=== PATIENT | male | born 1985 | race Caucasian/White ===

== ENCOUNTER → 2019-11-25 10:41 | Outpatient (BNVA) | payer MEDICAID, SELFPAY | PROVIDERS: PCP Family Medicine; Visit Provider Psychiatry & Neurology Psychiatry | DX: F33.9 Major depressive disorder, recurrent, unspecified (principal); F34.9 Persistent mood [affective] disorder, unspecified; E61.7 Deficiency of multiple nutrient elements; F41.9 Anxiety disorder, unspecified | CPT/HCPCS: 99205 ==

== ENCOUNTER → 2020-05-09 07:41 | Outpatient (BNVA) | payer MEDICAID, SELFPAY | PROVIDERS: PCP Family Medicine; Visit Provider Nurse Practitioner Psychiatric/Mental Health | DX: F33.9 Major depressive disorder, recurrent, unspecified (principal); F34.9 Persistent mood [affective] disorder, unspecified; F41.9 Anxiety disorder, unspecified; G89.29 Other chronic pain | CPT/HCPCS: 99213 ==

== ENCOUNTER → 2020-06-01 08:04 | Outpatient (BNVA) | payer MEDICAID, SELFPAY | PROVIDERS: PCP Family Medicine; Visit Provider Counselor Professional | DX: F33.9 Major depressive disorder, recurrent, unspecified (principal); F34.9 Persistent mood [affective] disorder, unspecified; F41.9 Anxiety disorder, unspecified; G89.29 Other chronic pain | CPT/HCPCS: 90834 ==

== ENCOUNTER → 2020-06-22 08:32 | Outpatient (BNVA) | payer MEDICAID, SELFPAY | PROVIDERS: PCP Family Medicine; Visit Provider Counselor Professional | DX: F33.9 Major depressive disorder, recurrent, unspecified (principal); F34.9 Persistent mood [affective] disorder, unspecified; F41.9 Anxiety disorder, unspecified; G89.29 Other chronic pain | CPT/HCPCS: 90834 ==

== ENCOUNTER → 2020-07-06 08:06 | Outpatient (BNVA) | payer MEDICAID, SELFPAY | PROVIDERS: PCP Family Medicine; Visit Provider Counselor Professional | DX: F33.9 Major depressive disorder, recurrent, unspecified (principal); F34.9 Persistent mood [affective] disorder, unspecified; F41.9 Anxiety disorder, unspecified; G89.29 Other chronic pain | CPT/HCPCS: 90834 ==

== ENCOUNTER → 2020-07-13 08:40 | Outpatient (BNVA) | payer MEDICAID, SELFPAY | PROVIDERS: PCP Family Medicine; Visit Provider Nurse Practitioner Psychiatric/Mental Health | DX: F33.9 Major depressive disorder, recurrent, unspecified (principal); F34.9 Persistent mood [affective] disorder, unspecified; F41.9 Anxiety disorder, unspecified; G89.29 Other chronic pain; F12.20 Cannabis dependence, uncomplicated | CPT/HCPCS: 99214 ==

== ENCOUNTER → 2020-08-31 08:00 | Outpatient (BNVA) | payer MEDICAID, SELFPAY | PROVIDERS: PCP Family Medicine; Visit Provider Nurse Practitioner Psychiatric/Mental Health | DX: F33.9 Major depressive disorder, recurrent, unspecified (principal); F34.9 Persistent mood [affective] disorder, unspecified; F41.9 Anxiety disorder, unspecified; G89.29 Other chronic pain; F12.20 Cannabis dependence, uncomplicated | CPT/HCPCS: 99213 ==

== ENCOUNTER → 2020-11-23 07:54 | Outpatient (BNVA) | payer MEDICAID, SELFPAY | PROVIDERS: PCP Family Medicine; Visit Provider Nurse Practitioner Psychiatric/Mental Health | DX: F33.9 Major depressive disorder, recurrent, unspecified (principal); F34.9 Persistent mood [affective] disorder, unspecified; F41.9 Anxiety disorder, unspecified; G89.29 Other chronic pain | CPT/HCPCS: 99213 ==

== ENCOUNTER → 2020-11-29 07:57 | Outpatient (BNVA) | payer MEDICAID, SELFPAY | PROVIDERS: PCP Family Medicine; Visit Provider Counselor Professional | DX: F33.9 Major depressive disorder, recurrent, unspecified (principal); F34.9 Persistent mood [affective] disorder, unspecified; F41.9 Anxiety disorder, unspecified; G89.29 Other chronic pain | CPT/HCPCS: 90834 ==

== ENCOUNTER 2021-01-31 10:22 | Emergency (ER) | payer MEDICAID, SELFPAY ==
[2021-01-31] VITALS (8 sets, daily range): BP systolic 104–139; BP diastolic 61–92; PULSE 76–105; RESP 16–18; TEMP 36.6; O2SAT 95–100; BMI 25.5
--- NOTE | 2021-01-31 11:10 | ED_ITS ---
HPI - Nausea/Vomiting/Diarrhea General: Chief complaint: General Medical Stated complaint: n/v, unable to eat, diabetic, weak, Time Seen by Provider: 01/31/21 10:27 Source: patient Mode of arrival: ambulatory Limitations: no limitations History of Present Illness: HPI Narrative: Patient is a nice 35-year-old male who presents to ED today along with his for complaints of nausea, vomiting, and abdominal pain. Patient tells me symptoms have been present over the past 6 days. He states he is a type I diabetic and concerned for possible DKA. He states his sugars at home have been running in the 300s-400s. He states normally they run in the 100s?200s. He has not been taking his insulin like he is supposed to because he cannot hold anything down and was afraid to take insulin without eating anything. He has not been able to hold down any of his other medications. Abdominal pain is diffuse. He states he was seen at [facility] ED on Friday and tells me they did a UDS and as soon as they saw it was positive for marijuana they discharged me home with hyperemesis cannabis . Patient tells me he does normally smoke marijuana in the evenings to help with sleep. He st ates he has not smoked over the past week. Of note he did recently complete course of steroids for COVID like symptoms. MD elicited complaint: nausea, vomiting and abdominal pain Onset (ago): day(s) Associated nausea: Yes Associated abdominal pain: Yes Location of pain: Diffuse Radiation: diffuse Pain consistency: constant Severity: severe Quality: cramping and aching Exacerbating factors: eating Relieving factors: none Context: marijuana use and other (Type I diabetic ) Associated symtoms: Reports nausea; Denies change in vision, chest pain, dysuria, fatigue, headache(s), malaise, palpitations or syncope Review of Systems Const: Denies: fever(s), chills, body aches, fatigue or malaise Eyes: Denies: change in vision or blurry vision ENMT: Denies: odynophagia, nasal discharge or nasal congestion Card: Denies: chest pain, palpitations, irregular heart rhythm, lightheadedness, syncope or pre-syncope Resp: Denies: dyspnea GI: Reports: abdominal pain, nausea and vomiting; Denies: hematemesis, coffee ground emesis, diarrhea, constipation, change in bowel habits or hematochezia : Denies: flank pain, dysuria or hematuria Musc: Denies: neck pain, back pain, extremity pain or joint pain Skin/Breast: Denies: rash Neuro: Denies: headache(s), numbness in extremities, weakness in extremities or sensory changes PFS ED PFSH: Medical History (Updated 01/31/21 @ 16:49 by ISAMAR Arriola) Anxiety disorder Chronic pain Social History (Updated 11/25/19 @ 10:50 by Amanda Montiel LPN) Smoking and tobacco status: never smoked Current gender identity: Male Physical Exam Const: COMMON NORMALS: average body habitus, patient oriented x3, no limitations, healthy appearing, alert and well nourished GENERAL APPEARANCE: cooperative and in distress (looks like he doesn't feel well) ORIENTATION/CONSCIOUSNESS: Yes awake, Yes oriented to person, Yes oriented to place and Yes oriented to time HENMT: COMMON NORMALS: normocephalic and atraumatic HEAD & SCALP: normocephalic and atraumatic Resp: COMMON NORMALS: normal respiratory effort and clear to auscultation bilaterally AUSCULTATION: clear to auscultation bilaterally Cardio: COMMON NORMALS: regular rhythm RATE: tachycardic (mild) RHYTHM: regular rhythm GI: COMMON NORMALS: Normal to inspection, nondistended, normoactive bowel sounds present, Soft to palpation, No hepatosplenomegaly present and no masses PALPATION: Yes Soft to palpation, Yes Tenderness to palpation present (GI) (diffusely), Yes Guarding due to palpation present (GI), Yes Rigid due to palpation and Yes No hepatosplenomegaly present : COMMON NORMALS: Yes no CVA tenderness BLADDER/KIDNEY EXAM: Yes no CVA tenderness Back/Pelvis: COMMON NORMALS: no CVA tenderness Extremity: COMMON NORMALS: normal to inspection Neuro: COMMON NORMALS: patient oriented x3 SENSORIUM/ORIENTATION: Yes alert, Yes oriented to person, Yes oriented to place and Yes oriented to time Skin: COMMON NORMALS: no rashes or lesions noted GENERAL SKIN EXAM: no rashes or lesions noted TRAUMA: no lacerations or abrasions Course ED course: Patient with blood sugar of 370s. His pH is normal but his bicarb is low and anion gap is over 33. Serum ketones positive. Spoke to Dr. Simpson who recommends second liter of fluids, IV insulin-no drip at this time, and reglan for possible diabetic gastroparesis. I think steroids could have precipitated this but also there is a possibility of hyperemesis cannabis syndrome based on his habitual use. Vital Signs: Vital signs: Vital Signs Temperature 97.8 F 01/31/21 10:56 Pulse Rate 102 H 01/31/21 17:25 Respiratory Rate 18 01/31/21 17:25 Blood Pressure 138/61 01/31/21 17:25 Pulse Oximetry 99 01/31/21 17:25 MDM - Nausea/Vomiting/Diarrhea MDM Narrative: Medical decision making narrative: Patient is a nice 35-year-old here for complaints of diffuse abdominal pain and uncontrollable nausea/vomiting. Symptoms have been present over the past 6 days. He is a type I diabetic. States he had not been taking his insulin as he has not been able to eat as his insulin as prescribed to take with meals. Patient has had recent steroid use secondary to COVID-like symptoms. He is a habitual marijuana user. Blood glucose in the 370s upon arrival. He did have positive serum ketones and a gap of over 33. Bicarb also low at 19. Patient is not wanting to stay in the hospital at this time. I spoke to Dr. Simpson and decision was made to give p atient 2 L of fluids, IV insulin, and IV antiemetics. Upon re-examination patient feels substantially improved. He is eating and drinking in the room. He states abdominal pain has subsided. He has not had any further episodes of emesis while here. Glucose down to 250s. His gap has closed slightly at 24.9 upon repeat BMP. Again I did recommend he stay in hospital as he certainly has early/compensated DKA at this time but again he feels like he can go home and doesn't want to stay. Will get patient set up with new PCP as he doesn't feel confident in his current PCP with the management of his diabetes. Will DC with Yesenia. DDx hyperemesis cannibus syndrome, gastroparesis, steroid induced hyperglycemia, DKA. Strict return to ED precautions given. Lab Data: Labs: Lab Results 01/31/21 01/31/21 01/31/21 Range/Units 11:16 11:20 11:21 WBC 8.8 (4.0-10.0) 10^3/ uL RBC 5.44 H (4.1-5.3) 10^6/u L Hgb 15.4 (11.7-16.6) g/dL Hct 46.5 (42.0-52.0) % MCV 85.5 (80-94) fl MCH 28.3 (28.0-34.0) pg MCHC 33.1 (30.0-36.0) g/dL RDW 12.6 (12.1-15.1) % Plt Count 262 (130-400) 10^3/c mm MPV 12.7 H (7.4-10.4) fL Neut % (Auto) 80.5 % Lymph % (Auto) 11.7 % [place] % (Auto) 7.3 % Eos % (Auto) 0.1 % Baso % (Auto) 0.2 % Neut # (Auto) 7.08 (1.8-7.7) 10^3/u L Lymph # (Auto) 1.0 (0.8-4.8) 10^3/u L [place] # (Auto) 0.6 (0.2-0.9) 10^3/u L Eos # (Auto) 0.0 (0.0-0.8) 10^3/u L Baso # (Auto) 0.0 (0.0-0.1) 10^3/u L Nucleated RBC % (a uto) 0 % Nucleated RBCs # 0.0 /100WBC Specimen Type Arterial Sample Site Radial, right ABG pH 7.41 (7.35-7.45) ABG pCO2 30.3 L (35-45) mmHg ABG pO2 89.5 (80.0-100.0) mmH g ABG HCO3 19.1 L (22-26) mmol/L ABG O2 Saturation 97.3 ABG Base Excess -4.3 L (-2.0-2.0) mmol/ L [place] Test Pos A-a O2 Gradient 2.8 L (5-10) mmHg Hematocrit 46.7 (42-52) % Hgb O2 Saturation 96.4 (95-100) % Carboxyhemoglobin 0.6 (0.4-20.1) %THgb Methemoglobin 0.3 L (0.4-1.5) % Total Hemoglobin 15.2 (14-18) g/dL Sodium 139.0 (131-143) mmol/L Potassium 3.7 (3.5-5.0) mmol/L Glucose 372.0 H (70-115) mg/dL Ionized Calcium 1.2 (1.1-1.4) mmol/L O2 Delivery Device Room air FiO2 21.0 % [employer] Hitch Driver ID [place]lor[place] (98-107) mmol/L Carbon Dioxide (22-29) mmol/L Anion Gap (5-19) BUN (6-20) mg/dL Creatinine (0.7-1.2) mg/dL GFR Calculation (90-130) mL/min POC Glucose 356 H (70-110) mg/dL Calculated Osmolal ity (285-295) mOsm/k g Calcium (8.5-10.5) mg/dL Total Bilirubin (0.15-1.2) mg/dL AST (0-40) U/L ALT (0-41) U/L Alkaline Phosphata se (40-130) IU/L Total Protein (6.6-8.7) g/dL Albumin (3.5-5.2) g/dL Globulin (1.3-4.6) g/dL Lipase (13-60) U/L Urine Color (Yellow) Urine Appearance (CLEAR) Urine pH (5-7) Ur Specific Gravit y (1.005-1.030) Urine Protein (Negative) Urine Glucose (UA) (Normal) Urine Ketones (Negative) Urine Blood (Negative) Urine Nitrate (Negative) Urine Bilirubin (Negative) Urine Urobilinogen (Negative) mg/dL Ur Leukocyte Kami ase (Negative) Serum Ketones (Negative) 01/31/21 01/31/21 01/31/21 Range/Units 11:21 11:21 12:24 WBC (4.0-10.0) 10^3/ uL RBC (4.1-5.3) 10^6/u L Hgb (11.7-16.6) g/dL Hct (42.0-52.0) % MCV (80-94) fl MCH (28.0-34.0) pg MCHC (30.0-36.0) g/dL RDW (12.1-15.1) % Plt Count (130-400) 10^3/c mm MPV (7.4-10.4) fL Neut % (Auto) % Lymph % (Auto) % [place] % (Auto) % Eos % (Auto) % Baso % (Auto) % Neut # (Auto) (1.8-7.7) 10^3/u L Lymph # (Auto) (0.8-4.8) 10^3/u L [place] # (Auto) (0.2-0.9) 10^3/u L Eos # (Auto) (0.0-0.8) 10^3/u L Baso # (Auto) (0.0-0.1) 10^3/u L Nucleated RBC % (a uto) % Nucleated RBCs # /100WBC Specimen Type Sample Site ABG pH (7.35-7.45) ABG pCO2 (35-45) mmHg ABG pO2 (80.0-100.0) mmH g ABG HCO3 (22-26) mmol/L ABG O2 Saturation ABG Base Excess (-2.0-2.0) mmol/ L [place] Test A-a O2 Gradient (5-10) mmHg Hematocrit (42-52) % Hgb O2 Saturation (95-100) % Carboxyhemoglobin (0.4-20.1) %THgb Methemoglobin (0.4-1.5) % Total Hemoglobin (14-18) g/dL Sodium 135 L (131-143) mmol/L Potassium 4.2 (3.5-5.0) mmol/L Glucose 373 H (70-115) mg/dL Ionized Calcium (1.1-1.4) mmol/L O2 Delivery Device FiO2 % Six [employer] Hitch Driver ID Chloride 87 L (98-107) mmol/L Carbon Dioxide 19 L (22-29) mmol/L Anion Gap 33.2 H (5-19) BUN 20 (6-20) mg/dL Creatinine 0.8 (0.7-1.2) mg/dL GFR Calculation 110.0 (90-130) mL/min POC Glucose (70-110) mg/dL Calculated Osmolal ity 298 H (285-295) mOsm/k g Calcium 9.8 (8.5-10.5) mg/dL Total Bilirubin 0.8 (0.15-1.2) mg/dL AST 11 (0-40) U/L ALT 12 (0-41) U/L Alkaline Phosphata se 120 (40-130) IU/L Total Protein 8.0 (6.6-8.7) g/dL Albumin 4.7 (3.5-5.2) g/dL Globulin 3.3 (1.3-4.6) g/dL Lipase 7 L (13-60) U/L Urine Color Yellow (Yellow) Urine Appearance Clear (CLEAR) Urine pH 5 (5-7) Ur Specific Gravit y 1.025 (1.005-1.030) Urine Protein Neg (Negative) Urine Glucose (UA) 4+ H (Normal) Urine Ketones 3+ H (Negative) Urine Blood Neg (Negative) Urine Nitrate Negative (Negative) Urine Bilirubin Neg (Negative) Urine Urobilinogen Neg (Negative) mg/dL Ur Leukocyte Kami ase Negative (Negative) Serum Ketones Positive H (Negative) 01/31/21 01/31/21 01/31/21 Range/Units 12:31 13:38 15:46 WBC (4.0-10.0) 10^3/ uL RBC (4.1-5.3) 10^6/u L Hgb (11.7-16.6) g/dL Hct (42.0-52.0) % MCV (80-94) fl MCH (28.0-34.0) pg MCHC (30.0-36.0) g/dL RDW (12.1-15.1) % Plt Count (130-400) 10^3/c mm MPV (7.4-10.4) fL Neut % (Auto) % Lymph % (Auto) % [place] % (Auto) % Eos % (Auto) % Baso % (Auto) % Neut # (Auto) (1.8-7.7) 10^3/u L Lymph # (Auto) (0.8-4.8) 10^3/u L [place] # (Auto) (0.2-0.9) 10^3/u L Eos # (Auto) (0.0-0.8) 10^3/u L Baso # (Auto) (0.0-0.1) 10^3/u L Nucleated RBC % (a uto) % Nucleated RBCs # /100WBC Specimen Type Sample Site ABG pH (7.35-7.45) ABG pCO2 (35-45) mmHg ABG pO2 (80.0-100.0) mmH g ABG HCO3 (22-26) mmol/L ABG O2 Saturation ABG Base Excess (-2.0-2.0) mmol/ L [place] Test A-a O2 Gradient (5-10) mmHg Hematocrit (42-52) % Hgb O2 Saturation (95-100) % Carboxyhemoglobin (0.4-20.1) %THgb Methemoglobin (0.4-1.5) % Total Hemoglobin (14-18) g/dL Sodium 132 L (131-143) mmol/L Potassium 3.9 (3.5-5.0) mmol/L Glucose 335 H (70-115) mg/dL Ionized Calcium (1.1-1.4) mmol/L O2 Delivery Device FiO2 % [employer] Hitch Driver ID Chloride 91 L (98-107) mmol/L Carbon Dioxide 20 L (22-29) mmol/L Anion Gap 24.9 H (5-19) BUN 18 (6-20) mg/dL Creatinine 0.7 (0.7-1.2) mg/dL GFR Calculation 128.3 (90-130) mL/min POC Glucose 327 H 258 H (70-110) mg/dL Calculated Osmolal ity 289 (285-295) mOsm/k g Calcium 8.9 (8.5-10.5) mg/dL Total Bilirubin (0.15-1.2) mg/dL AST (0-40) U/L ALT (0-41) U/L Alkaline Phosphata se (40-130) IU/L Total Protein (6.6-8.7) g/dL Albumin (3.5-5.2) g/dL Globulin (1.3-4.6) g/dL Lipase (13-60) U/L Urine Color (Yellow) Urine Appearance (CLEAR) Urine pH (5-7) Ur Specific Gravit y (1.005-1.030) Urine Protein (Negative) Urine Glucose (UA) (Normal) Urine Ketones (Negative) Urine Blood (Negative) Urine Nitrate (Negative) Urine Bilirubin (Negative) Urine Urobilinogen (Negative) mg/dL Ur Leukocyte Kami ase (Negative) Serum Ketones (Negative) Imaging Data^: CT Abd/Pel: Radiologist's impression: [address] [place] [address] CT Scan Report Signed Patient: Dann Hyde Unit #: [id number] : 1985 Age/Sex: 35 / M ADM Date: 01/31/21 Loc: ER Room/Bed: Attending Dr: Ordering Provider/Ordering MD: Skye Pearson Date of Service: 01/31/21 Procedure(s): CT abdomen pelvis w con* [id number] Accession Number(s): [id number] Report Number: [id number] WS: [id number] CT ABDOMEN AND PELVIS WITH CONTRAST HISTORY: abdominal pain, N/V TECHNIQUE: Imaging performed of the abdomen and pelvis with IV contrast. Single phase imaging of the abdomen. Coronal and sagittal reformats are submitted. All CT scans at [facility] use at least one of these dose optimization techniques: automated exposure control; mA and/or kV adjustment per patient size (includes targeted exams where dose is matched to clinical indication); or iterative reconstruction. IV CONTRAST: Omnipaque 300; 95 mL IV. Oral contrast: No DLP: 1338.11 mGy.cm COMPARISON: None available. Lower thorax: Lung bases are clear. Heart is normal size. Moderate size hiatal hernia. Liver/biliary system: Liver is top normal size. Hepatic steatosis along the falciform ligament. No bile duct dilatation or mass. Gallbladder: Normal. No gallstones or wall thickening. No pericholecystic fluid. Pancreas: Normal size pancreas and pancreatic duct. No adjacent inflammation. Spleen: Normal size spleen. No mass or infarct. Adrenal glands: Normal. Right kidney: Normal. Left kidney: Normal. Aorta: Minimal atherosclerotic plaque within the aorta. No aneurysm. Lymphadenopathy: None. Free fluid: None. GI tract: The appendix is normal. No significant mucosal thickening or edema. No obstructive pattern. Abdominal wall: Unremarkable abdominal wall. No hernia. Pelvis: No free fluid or adenopathy within the pelvis. Bones: Unremarkable. CT/CT abdomen pelvis w con* [id number] IMPRESSION: 1. No evidence for acute appendicitis. 2. No acute abdominal or pelvic abnormalities are identified. No free fluid or free air. No renal obstruction. Dictated By: Evelia Tinajero DO Signed By: Evelia Tinajero DO Signed Date/Time: 01/31/21 1332 DD/ 1328 Discharge Plan Discharge Patient Disposition: Home Clinical Impression: Acute hyperglycemia Condition: Stable Prescriptions: New Zofran 4 mg tablet 4 mg PO Q6H PRN (Reason: nausea and vomiting) Qty: 14 RF: 0 No Action insulin aspart U-100 [Novolog Flexpen U-100 Insulin] 100 unit/mL (3 mL) insulin pen 15 unit SUBCUT TID RF: 0 alprazolam [Xanax] 0.5 mg tablet 0.5 mg PO BID PRN (Reason: anxiety) Qty: 60 RF: 1 pantoprazole [Protonix] [address] for susp in packet 40 mg PO DAILY RF: 0 trazodone 100 mg tablet 100 mg PO BEDTIME PRN (Reason: insomnia) RF: 0 Ambien 10 mg tablet 10 mg PO BEDTIME PRN (Reason: insomnia) RF: 0 duloxetine 30 mg capsule,delayed release(DR/EC) 30 mg PO QPM RF: 0 duloxetine 60 mg capsule,delayed release(DR/EC) 60 mg PO QAM RF: 0 promethazine 12.5 mg Tablet 12.5 mg PO Q6H PRN (Reason: Nausea) RF: 0 Discharge Orders: Discharge ED (Routine); Ordered 01/31/21 Ordered By: Skye Pearson Referrals: Devon Hernandez MD [Primary Care Provider] - Activity Restrictions/Additional Instructions: As we discussed your labs were concerning for early DKA. At this time your pH is normal. We did discuss possible admission but you would like to go home at this time. You may use the Zofran as needed for nausea or vomiting. Continue to monitor sugars closely. Case management will work on getting you set up with a new primary care provider for further management. You need to return to the emergency department immediately for uncontrollable nausea or vomiting, severe abdominal pain, lightheadedness/dizziness, passing out episodes, or any other concerns you may have. I hope you begin to feel better soon. Coding Level of Care Code ED Strapper Operator for Chg Fwd Exam Comprehensive
[2021-01-31] MEDS: sodium chloride 0.9% 1,000 ML 999 ML IV ×2 (11:25→12:33)
[2021-01-31 11:27] LABS: Basophils % 0.2 %; Eosinophils % 0.1 %; Hematocrit 46.5 % (42.0-52.0); Hemoglobin 15.4 g/dL (11.7-16.6); Lymphocytes % 11.7 %; Mean Corpuscular HGB Conc 33.1 g/dL (30.0-36.0); Mean Corpuscular Hemoglobin 28.3 pg (28.0-34.0); Mean Corpuscular Volume 85.5 fl (80-94); Mean Platelet Volume 12.7 fL (7.4-10.4); Monocytes # 0.6 10^3/uL (0.2-0.9); Monocytes % 7.3 %; Neutrophils # 7.08 10^3/uL (1.8-7.7); Neutrophils % 80.5 %; Nucleated Red Blood Cells % 0 %; Platelet Count 262 10^3/cmm (130-400); Red Blood Count 5.44 10^6/uL (4.1-5.3); Red Cell Distribution Width 12.6 % (12.1-15.1); White Blood Count 8.8 10^3/uL (4.0-10.0)
[2021-01-31 11:33] LABS: ABG PCO2 30.3 mmHg (35-45); ABG PH Result 7.41 (7.35-7.45); Alveolar-Arterial Oxygen Gradi 2.8 mmHg (5-10); Arterial Blood Gas Hematocrit 46.7 % (42-52); Base Excess ABG -4.3 mmol/L (-2.0-2.0); Blood Gas Allen Test Pos; Blood Gas Operator Identificat MT; Blood Gas Sample Site Radial, right; Blood Gas Sample Type Arterial; Carboxyhemoglobin 0.6 %THgb (0.4-20.1); HCO3 ABG 19.1 mmol/L (22-26); HGB O2 Sat 96.4 % (95-100); Ionized Calcium Level - ABG 1.2 mmol/L (1.1-1.4); Methemoglobin 0.3 % (0.4-1.5); Oxygen Device ROOM AIR; Oxygen Saturation ABG 97.3; PO2 ABG 89.5 mmHg (80.0-100.0); Potassium Level - ABG 3.7 mmol/L (3.5-5.0); Total Hemoglobin 15.2 g/dL (14-18)
[2021-01-31 11:33] LABS: Glucose Point of Care 356 mg/dL (70-110)
[2021-01-31 11:36] LABS: Ketone (Acetest) Serum Positive (Negative)
[2021-01-31] MEDS: ondansetron 2 mg/ML SDV 2 mL 4 MG IVP (11:43)
[2021-01-31 11:46] LABS: Alanine Aminotransferase 12 U/L (0-41); Albumin Level 4.7 g/dL (3.5-5.2); Alkaline Phosphatase 120 IU/L (40-130); Anion Gap 33.2 (5-19); Aspartate Amino Transferase 11 U/L (0-40); Blood Urea Nitrogen 20 mg/dL (6-20); Calcium 9.8 mg/dL (8.5-10.5); Carbon Dioxide 19 mmol/L (22-29); Chloride 87 mmol/L (98-107); Globulin 3.3 g/dL (1.3-4.6); Glucose 373 mg/dL (65-115); Lipase 7 U/L (13-60); Osmolality Calculated 298 mOsm/kg (285-295); Potassium 4.2 mmol/L (3.5-5.1); Sodium 135 mmol/L (136-145); Total Bilirubin 0.8 mg/dL (0.15-1.2)
[2021-01-31 12:32] LABS: Add Urine Microscopic? NO; Charge for UA Resulting for Rev
[2021-01-31] MEDS: insulin regular-human 100 units/1 mL 10 UNIT IVP (12:33)
[2021-01-31] MEDS: metoclopramide 5 mg/mL SDV 2 mL 10 MG IVP (12:33)
[2021-01-31 12:36] LABS: Bilirubin Urine Neg (Negative); Blood Urine Neg (Negative); Glucose Urine UA 4+ (Normal); Ketones Urine 3+ (Negative); Leukocyte Esterase Urine Negative (Negative); Nitrate Urine Negative (Negative); Protein Urine Neg (Negative); Specific Gravity, Urine 1.025 (1.005-1.030); Urine Appearance Clear (CLEAR); Urine Color Yellow (Yellow); Urobilinogen Urine Neg (Negative); pH Urine 5 (5-7)
[2021-01-31 12:42] LABS: Glucose Point of Care 327 mg/dL (70-110)
--- NOTE | 2021-01-31 12:56 | CT_ITS ---
WS: [id number] CT ABDOMEN AND PELVIS WITH CONTRAST HISTORY: abdominal pain, N/V TECHNIQUE: Imaging performed of the abdomen and pelvis with IV contrast. Single phase imaging of the abdomen. Coronal and sagittal reformats are submitted. All CT scans at [facility] use at least one of these dose optimization techniques: automated exposure control; mA and/or kV adjustment per patient size (includes targeted exams where dose is matched to clinical indication); or iterativ e reconstruction. IV CONTRAST: Omnipaque 300; 95 mL IV. Oral contrast: No DLP: 1338.11 mGy.cm COMPARISON: None available. Lower thorax: Lung bases are clear. Heart is normal size. Moderate size hiatal hernia. Liver/biliary system: Liver is top normal size. Hepatic steatosis along the falciform ligament. No bi le duct dilatation or mass. Gallbladder: Normal. No gallstones or wall thickening. No pericholecystic fluid. Pancreas: Normal size pancreas and pancreatic duct. No adjacent inflammation. Spleen: Normal size spleen. No mass or infarct. Adrenal glands: Normal. Right kidney: Normal. Left kidney: Normal. Aorta: Minimal atherosclerotic plaque within the aorta. No aneurysm. Lymphadenopathy: None. Free fluid: None. GI tract: The appendix is normal. No significant mucosal thickening or edema. No obstructive pattern. Abdominal wall: Unremarkable abdominal wall. No hernia. Pelvis: No free fluid or adenopathy within the pelvis. Bones: Unremarkable. CT/CT abdomen pelvis w con* [id number] IMPRESSION: 1. No evidence for acute appendicitis. 2. No acute abdominal or pelvic abnormalities are identified. No free fluid or free air. No renal obstruction.
[2021-01-31] MEDS: iohexol 300 mg/mL 100 mL Btl IV (13:13)
[2021-01-31] MEDS: insulin regular-human 100 units/1 mL 5 UNIT IVP (13:39)
[2021-01-31 13:43] LABS: Glucose Point of Care 258 mg/dL (70-110)
[2021-01-31] MEDS: LORazepam 2 mg/mL INJ 1 mL 1 MG IVP (14:08)
[2021-01-31 16:41] LABS: Anion Gap 24.9 (5-19); Blood Urea Nitrogen 18 mg/dL (6-20); Calcium 8.9 mg/dL (8.5-10.5); Carbon Dioxide 20 mmol/L (22-29); Chloride 91 mmol/L (98-107); Glomerular Filtration Rate 128.3 mL/min (90-130); Glucose 335 mg/dL (65-115); Osmolality Calculated 289 mOsm/kg (285-295); Potassium 3.9 mmol/L (3.5-5.1); Sodium 132 mmol/L (136-145)
--- NOTE | 2021-02-01 09:09 | DCPLANNER ---
advanced manager had message to speak with patient about getting a new primary care physician. advanced manager called phone number [phone], unable to speak with patient at this time, a voicemail was left for patient to return vocational case manager phone call.
== END 2021-01-31 17:25 | disposition home or self-care (01) ==
PROVIDERS: Emergency Provider Physician Assistant; PCP Family Medicine
DX: E11.65 Type 2 diabetes mellitus with hyperglycemia (principal); Z79.4 Long term (current) use of insulin
CPT/HCPCS: 36416; 36600; 74177; 80048; 80051; 80053; 81003; 82009; 82330; 82805; 82962; 83690; 85025; 96361; 96374; 96375; 96376; 99284; J1815; J2060; J2405; J2765; J7030; Q9967

== ENCOUNTER → 2021-04-17 08:17 | Outpatient (BNVA) | payer MEDICAID, SELFPAY | PROVIDERS: PCP Family Medicine; Visit Provider Nurse Practitioner Psychiatric/Mental Health | DX: F41.9 Anxiety disorder, unspecified (principal); F33.9 Major depressive disorder, recurrent, unspecified; F34.9 Persistent mood [affective] disorder, unspecified | CPT/HCPCS: 99213 ==

== ENCOUNTER → 2021-06-19 07:51 | Outpatient (BNVA) | payer MEDICAID, SELFPAY | PROVIDERS: PCP Family Medicine; Visit Provider Nurse Practitioner Psychiatric/Mental Health | DX: F34.9 Persistent mood [affective] disorder, unspecified (principal); F41.9 Anxiety disorder, unspecified; F33.41 Major depressive disorder, recurrent, in partial remission; G89.29 Other chronic pain | CPT/HCPCS: 99213 ==

== ENCOUNTER → 2021-12-03 07:14 | Outpatient (BNVA) | payer MEDICAID, SELFPAY | PROVIDERS: PCP Family Medicine; Visit Provider Nurse Practitioner Psychiatric/Mental Health | DX: F33.9 Major depressive disorder, recurrent, unspecified (principal); F41.9 Anxiety disorder, unspecified | CPT/HCPCS: 99214 ==

== ENCOUNTER → 2021-12-18 10:58 | Outpatient (BNVA) | payer MEDICAID, SELFPAY | PROVIDERS: PCP Family Medicine; Visit Provider Internal Medicine | DX: E10.9 Type 1 diabetes mellitus without complications (principal); E78.2 Mixed hyperlipidemia; Z79.4 Long term (current) use of insulin | CPT/HCPCS: 99204 ==

== ENCOUNTER → 2022-08-12 08:30 | Outpatient (BNVA) | payer MEDICAID, SELFPAY | PROVIDERS: PCP Family Medicine; Visit Provider Internal Medicine | DX: E11.40 Type 2 diabetes mellitus with diabetic neuropathy, unspecified (principal); Z79.4 Long term (current) use of insulin; E11.49 Type 2 diabetes mellitus with other diabetic neurological complication; E78.2 Mixed hyperlipidemia | CPT/HCPCS: 99214 ==

== ENCOUNTER → 2024-06-01 10:41 | Outpatient (BNVA) | payer MEDICAID, SELFPAY | PROVIDERS: PCP Family Medicine; Visit Provider Nurse Practitioner Family | DX: S62.336A Displaced fracture of neck of fifth metacarpal bone, right hand, initial encounter for closed fracture (principal); W19.XXXA Unspecified fall, initial encounter | CPT/HCPCS: 73130 ==